=== PATIENT | female | born 1960 | race Caucasian/White ===

== ENCOUNTER 2021-06-06 16:29 | Emergency (ER) | payer MEDICARE ==
[2021-06-06 18:31] LABS: BASOPHIL 0.2 % (0-2); EOSINOPHIL 0.2 % (0-5); HCT 29.3 % (37.0-47.0); HGB 9.2 g/dl (12.5-16.0); LYMPHOCYTE 7.9 % (15-48); MCH 28.3 pg (25.0-31.0); MCHC 31.4 g/dL (32.0-36.0); MCV 90.2 fL (78.0-100.0); MONOCYTE 7.3 % (0-12); NEUTROPHIL 82.2 % (41-80); NRBC 0.6; PLT 245 K/uL (150-400); RBC 3.25 M/uL (4.20-5.40); WBC 5.1 K/uL (4.0-10.5)
[2021-06-06 18:57] LABS: BILIRUBIN - TOTAL 0.4 mg/dL (0.2-1.0); C-REACTIVE PROTEIN 10.3 mg/dL (<=0.90); CREATININE 6.94 mg/dL (0.51-0.95); GLOBULIN (CALCULATION) 4.5 g/dL; POTASSIUM 4.8 mmol/L (3.5-5.1); TOTAL PROTEIN 7.5 g/dL (6.4-8.2)
[2021-06-06 19:00] LABS: LACTIC ACID 1.3 mmol/L (0.4-1.9)
== END 2021-06-07 02:15 | disposition other institution (70) ==
LOC: FER 16:29
PROVIDERS: Emergency Medicine
DX: U07.1 COVID-19 (principal); J12.82 Pneumonia due to coronavirus disease 2019; J81.1 Chronic pulmonary edema; J96.01 Acute respiratory failure with hypoxia; N17.9 Acute kidney failure, unspecified; I12.9 Hypertensive chronic kidney disease with stage 1 through stage 4 chronic kidney disease, or unspecified chronic kidney disease; E11.22 Type 2 diabetes mellitus with diabetic chronic kidney disease; N18.9 Chronic kidney disease, unspecified; D63.1 Anemia in chronic kidney disease; Z23 Encounter for immunization; Z91.040 Latex allergy status; Z79.899 Other long term (current) drug therapy
CPT/HCPCS: 36415; 36600; 71045; 80053; 82803; 83605; 83880; 84145; 84484; 85025; 86140; 87040; 93005; 96365; 96367; 96375; C9399; J1100; J1885; J1940; J2405; J2543; J7030; J7050; U0002

== ENCOUNTER 2021-08-24 10:37 | Emergency (ER) | payer MEDICARE ==
[2021-08-24 11:15] LABS: BASOPHIL 0.1 % (0-2); EOSINOPHIL 0.1 % (0-5); HCT 30.1 % (37.0-47.0); HGB 8.5 g/dl (12.5-16.0); MCH 28.1 pg (25.0-31.0); MCHC 28.2 g/dL (32.0-36.0); MCV 99.3 fL (78.0-100.0); MONOCYTE 5.2 % (0-12); MPV 10.9 fL (6.0-9.5); NEUTROPHIL 83.5 % (41-80); NRBC 0.2; PLT 277 K/uL (150-400); RBC 3.03 M/uL (4.20-5.40); RDW 18.2 % (11.5-14.0); WBC 16.2 K/uL (4.0-10.5)
[2021-08-24 11:27] LABS: ALBUMIN 1.3 g/dL (3.4-5.0); BILIRUBIN - TOTAL 0.4 mg/dL (0.2-1.0); BUN/CREAT RATIO (CALC) 10.2 RATIO; CREATININE 5.6 mg/dL (0.51-0.95); GLOBULIN (CALCULATION) 5.3 g/dL; POTASSIUM 4.6 mmol/L (3.5-5.1); TOTAL PROTEIN 6.6 g/dL (6.4-8.2)
[2021-08-24 11:36] LABS: LACTIC ACID 3.4 mmol/L (0.4-1.9)
[2021-08-24 11:43] LABS: PROTHROMBIN TIME > 120 SECONDS (11.8-13.4); PTT 81.3 SECONDS (24.4-34.7)
[2021-08-24 11:45] LABS: INR > 17 (0.9-1.2)
== END 2021-08-24 18:40 | disposition other institution (70) ==
LOC: FER 10:37
PROVIDERS: Emergency Medicine
DX: I21.4 Non-ST elevation (NSTEMI) myocardial infarction (principal); E11.22 Type 2 diabetes mellitus with diabetic chronic kidney disease; I12.0 Hypertensive chronic kidney disease with stage 5 chronic kidney disease or end stage renal disease; N18.6 End stage renal disease; E11.622 Type 2 diabetes mellitus with other skin ulcer; L89.153 Pressure ulcer of sacral region, stage 3; L89.893 Pressure ulcer of other site, stage 3; I25.10 Atherosclerotic heart disease of native coronary artery without angina pectoris; Z86.16 Personal history of COVID-19; Z91.040 Latex allergy status; Z91.048 Other nonmedicinal substance allergy status; Z28.310 Unvaccinated for COVID-19
CPT/HCPCS: 36415; 71045; 80053; 82553; 83605; 84484; 85025; 85610; 85730; 87040; 87324; 87449; 87493; 93005; J2543; J7030

== ENCOUNTER 2021-09-07 11:50 | Emergency (ER) | payer OTHER ==
[2021-09-07 13:22] LABS: BASOPHIL 0.3 % (0-2); EOSINOPHIL 0.1 % (0-5); HCT 31.3 % (37.0-47.0); LYMPHOCYTE 8.9 % (15-48); MCH 28.5 pg (25.0-31.0); MCHC 28.8 g/dL (32.0-36.0); MCV 99.1 fL (78.0-100.0); MONOCYTE 5.7 % (0-12); NRBC 0.3; PLT 188 K/uL (150-400); RBC 3.16 M/uL (4.20-5.40); RDW 19.7 % (11.5-14.0); WBC 17.7 K/uL (4.0-10.5)
[2021-09-07 13:47] LABS: NEUTROPHIL 81.2 % (41-80)
[2021-09-07 13:54] LABS: INR 1.61 (0.9-1.2); IRON % SATURATION 17.9 %SAT (20-50); PROTHROMBIN TIME 18.4 SECONDS (11.8-13.4); PTT 39.4 SECONDS (24.4-34.7)
[2021-09-07 13:56] LABS: ALBUMIN 1.3 g/dL (3.4-5.0); BILIRUBIN - TOTAL 0.4 mg/dL (0.2-1.0); BUN/CREAT RATIO (CALC) 7.3 RATIO; CREATININE 3.28 mg/dL (0.51-0.95); GLOBULIN (CALCULATION) 4.5 g/dL; POTASSIUM 3.7 mmol/L (3.5-5.1); TOTAL PROTEIN 5.8 g/dL (6.4-8.2)
== END 2021-09-07 20:30 | disposition other institution (70) ==
LOC: FER 11:50
PROVIDERS: Emergency Medicine
DX: M72.6 Necrotizing fasciitis (principal); E11.22 Type 2 diabetes mellitus with diabetic chronic kidney disease; I12.0 Hypertensive chronic kidney disease with stage 5 chronic kidney disease or end stage renal disease; N18.6 End stage renal disease; R58 Hemorrhage, not elsewhere classified; Z91.040 Latex allergy status; Z99.2 Dependence on renal dialysis; Z20.822 Contact with and (suspected) exposure to COVID-19
CPT/HCPCS: 36415; 36600; 80053; 82803; 83540; 83550; 83605; 83735; 84145; 84484; 85025; 85610; 85730; 86900; 86901; 93005; J2543; J3370; J7030; J7050; J7120; P9047; U0002